=== PATIENT | female | born 1950 | race Caucasian/White ===

== ENCOUNTER → 2017-05-04 | Outpatient (CLI) | payer MEDICARE | END | disposition home or self-care (01) | LOC: CFH 07:58 | PROVIDERS: ATTEND Nurse Practitioner Family | DX: M23.221 Derangement of posterior horn of medial meniscus due to old tear or injury, right knee (principal); M17.11 Unilateral primary osteoarthritis, right knee; M65.9 Synovitis and tenosynovitis, unspecified ==

== ENCOUNTER → 2018-07-02 | Outpatient (CLI) | payer MEDICARE | END | disposition home or self-care (01) | LOC: CFH 09:44 | PROVIDERS: ATTEND Nurse Practitioner Family | DX: Z12.31 Encounter for screening mammogram for malignant neoplasm of breast (principal) | CPT/HCPCS: 77067 ==

== ENCOUNTER 2018-07-13 13:05 | Outpatient (CLI) | payer MEDICARE | END 2018-07-13 23:59 | disposition home or self-care (01) | LOC: CFH 13:05 | PROVIDERS: ATTEND Nurse Practitioner Family | DX: K76.0 Fatty (change of) liver, not elsewhere classified (principal); K80.20 Calculus of gallbladder without cholecystitis without obstruction; N28.1 Cyst of kidney, acquired; N83.201 Unspecified ovarian cyst, right side; N85.8 Other specified noninflammatory disorders of uterus | CPT/HCPCS: 76700; 76856 ==

== ENCOUNTER → 2018-08-08 | Outpatient (CLI) | payer MEDICARE ==
[~2018-08-08] MED LIST: OMNIPAQUE 350 MG/ML, 100ML BOTTLE ONE
== END | disposition home or self-care (01) ==
LOC: CFH 09:56
PROVIDERS: ATTEND Nurse Practitioner Family
DX: N28.1 Cyst of kidney, acquired (principal); K80.20 Calculus of gallbladder without cholecystitis without obstruction; R11.0 Nausea; R11.2 Nausea with vomiting, unspecified
CPT/HCPCS: 74177; Q9967

== ENCOUNTER → 2018-12-11 | Outpatient (CLI) | payer MEDICARE ==
[~2018-12-11] MED LIST changes: -OMNIPAQUE 350 MG/ML, 100ML BOTTLE ONE; +SINCALIDE (KINEVAC) 5 MCG ONE
== END | disposition home or self-care (01) ==
LOC: RAD 09:30
PROVIDERS: ATTEND Nurse Practitioner Family
DX: R11.2 Nausea with vomiting, unspecified (principal); K76.89 Other specified diseases of liver
CPT/HCPCS: 78227; A9537; J2805

== ENCOUNTER 2020-08-21 10:37 | Outpatient (CLI) | payer MEDICARE ==
[2020-08-21] MEDS ORDERED: LISI-167 PO (11:17)
[2020-08-21] MEDS ORDERED: AMLO-150 PO (11:17)
[2020-08-21] MEDS ORDERED: HYDR-3248 PO (11:17)
[2020-08-21] MEDS ORDERED: ALBU90AE INH (11:17)
[2020-08-21] MEDS ORDERED: ATOR20TA37 PO (11:17)
[2020-08-21] MEDS ORDERED: DIPH25CA61 PO (11:40)
[2020-08-21] MEDS ORDERED: ALBU0.63 NEB (11:40)
[2020-08-21 12:00] LABS: BASOPHILS % (AUTO) 1 % (0-1); EOSINOPHILS % (AUTO) 2 % (1-7); LYMPHOCYTES % (AUTO) 18 % (22-44); MEAN CORPUSCULAR HEMOGLOBIN 31.5 pg (27.0-34.8); MEAN CORPUSCULAR HGB CONC 32.2 g/dL (32.4-35.8); MEAN PLATELET VOLUME 8.9 fL (7.4-10.4); MONOCYTES % (AUTO) 6 % (2-9); NEUTROPHILS % (AUTO) 73 % (42-75); PLATELET COUNT 361 x10^3/uL (130-400); RED BLOOD COUNT 4.03 x10^6/uL (3.82-5.3); RED CELL DISTRIBUTION WIDTH 15.5 % (9.6-15.2)
[2020-08-21 12:08] LABS: ALANINE AMINOTRANSFERASE 11 U/L (12-78); ALBUMIN 3.4 g/dL (3.4-5.0); ANION GAP 7 mmol/L (5-15); CHLORIDE 107 mmol/L (98-107); INTERNATIONAL NORMALIZED RATIO 0.93 (0.93-1.1); PROTHROMBIN TIME 9.9 Seconds (9.6-11.5)
[2020-08-21 12:11] LABS: ALKALINE PHOSPHATASE 90 U/L (45-117); BILIRUBIN,TOTAL 0.7 mg/dL (0.2-1.0); CREATININE 0.88 mg/dL (0.55-1.02); TOTAL PROTEIN 7.3 g/dL (6.4-8.2)
== END 2020-08-21 23:59 | disposition home or self-care (01) ==
LOC: STAR 10:37
PROVIDERS: ATTEND Orthopaedic Surgery
DX: Z01.812 Encounter for preprocedural laboratory examination (principal); Z20.822 Contact with and (suspected) exposure to COVID-19; M16.12 Unilateral primary osteoarthritis, left hip; I45.10 Unspecified right bundle-branch block
CPT/HCPCS: 36415; 80053; 83036; 85025; 85610; 85730; 87081; 93005; U0003; U0005

== ENCOUNTER 2020-08-28 05:31 | Day surgery (SDC) | payer MEDICARE ==
[2020-08-27 11:25] LABS: BASOPHILS % (AUTO) 1 % (0-1); EOSINOPHILS % (AUTO) 2 % (1-7); LYMPHOCYTES % (AUTO) 17 % (22-44); MEAN CORPUSCULAR HEMOGLOBIN 31.5 pg (27.0-34.8); MEAN CORPUSCULAR HGB CONC 32.1 g/dL (32.4-35.8); MEAN PLATELET VOLUME 8.4 fL (7.4-10.4); MONOCYTES % (AUTO) 6 % (2-9); NEUTROPHILS % (AUTO) 75 % (42-75); PLATELET COUNT 367 x10^3/uL (130-400); RED CELL DISTRIBUTION WIDTH 15.7 % (9.6-15.2)
[2020-08-27 11:38] LABS: MICROSCOPIC INDICATED
[~2020-08-28] VITALS: Ht 172.7 cm; Wt 85.7 kg
[~2020-08-28 05:31] MED LIST changes: +ALBU0.63 NEB; +ALBU90AE INH; +AMLO-150 PO; +ATOR20TA37 PO; +CEFD300C37 PO; +DIPH25CA61 PO; +HYDR-3248 PO; +LISI-167 PO; -SINCALIDE (KINEVAC) 5 MCG ONE
[2020-08-28] MEDS ORDERED: GABAPENTIN 300 MG CAPSULE PO ONE (06:00)
[2020-08-28] MEDS ORDERED: ACETAMINOPHEN 500 MG TABLET PO ONE (06:00)
[2020-08-28] MEDS ORDERED: CHLORHEXIDINE 15 ML UDC PO ONE (06:00)
[2020-08-28] MEDS ORDERED: TRANEXAMIC ACID 100 MG/ML, 10ML ONE ×2 (06:14)
[2020-08-28] MEDS ORDERED: KETOROLAC 30 MG/1 ML ONE (06:14)
[2020-08-28] MEDS ORDERED: ROPIvacaine/PF 0.5%, 30 ML ONE (06:14)
[2020-08-28] MEDS ORDERED: VANCOMYCIN 1,000 MG ONE (06:15)
[2020-08-28] MEDS ORDERED: EPINEPHRINE 1 MG/ML, 1ML ONE (06:15)
[2020-08-28 06:17] VITALS: BP 152/83
[2020-08-28] MEDS ORDERED: ROCURONIUM 10MG/ML,5ML ONE (06:29)
[2020-08-28] MEDS ORDERED: PROPOFOL 10 MG/ML, 20ML ONE (06:29)
[2020-08-28] MEDS ORDERED: MIDAZOLAM 1 MG/ML, 2ML ONE (06:29)
[2020-08-28] MEDS ORDERED: FENTANYL PF 250 MCG/5ML ONE (06:29)
[2020-08-28] MEDS ORDERED: ONDANSETRON 2MG/ML, 2ML IV PRN (06:30)
[2020-08-28] MEDS ORDERED: HYDROcodone/APAP 5/325 TABLET PO PRN (06:30)
[2020-08-28] MEDS ORDERED: BISACODYL 10 MG SUPP PR PRN (06:30)
[2020-08-28] MEDS ORDERED: CEFAZOLIN PMX 2GM/50ML 50 ML IVPB SCH (06:30)
[2020-08-28] MEDS ORDERED: LACTATED RINGERS 1,000 ML IV SCH (06:30)
[2020-08-28] MEDS ORDERED: NS + 20MEQ KCL 1,000 ML IV SCH (06:30)
[2020-08-28] MEDS ORDERED: SENNA/DOCUSATE TABLET PO PRN (06:30)
[2020-08-28] MEDS ORDERED: OXYcodone IR 5MG TABLET PO PRN (06:30)
[2020-08-28] MEDS ORDERED: DIPHENHYDRAMINE 25 MG CAPSULE PO PRN (06:30)
[2020-08-28] MEDS ORDERED: ZOLPIDEM 5MG TABLET PO PRN (06:30)
[2020-08-28] MEDS ORDERED: ACETAMINOPHEN 650 MG/20.3 ML UDC PO PRN (06:30)
[2020-08-28] MEDS ORDERED: MAGNESIUM HYDROXIDE 8%, 30ML UDC PO PRN (06:30)
[2020-08-28] MEDS ORDERED: ONDANSETRON 4 MG TABLET PO PRN (06:30)
[2020-08-28] MEDS ORDERED: CEFAZOLIN 1,000 MG ONE ×2 (07:01)
[2020-08-28] MEDS ORDERED: LABETALOL 5MG/ML, 20ML IV PRN (07:30)
[2020-08-28] MEDS ORDERED: ACETAMINOPHEN 325 MG TABLET PO PRN (07:30)
[2020-08-28] MEDS ORDERED: ONDANSETRON 2MG/ML, 2ML IVPush PRN (07:30)
[2020-08-28] MEDS ORDERED: GLYCOPYRROLATE 0.2MG/1ML, 5ML ONE (07:30)
[2020-08-28] MEDS ORDERED: OXYcodone 5 MG/5 ML ORAL.SOL UDC PO PRN (07:30)
[2020-08-28] MEDS ORDERED: MEPERIDINE/PF 25MG/0.5ML IVPush PRN (07:30)
[2020-08-28] MEDS ORDERED: hydrALAzine 20 MG/ML, 1ML IV PRN (07:30)
[2020-08-28] MEDS ORDERED: PROMETHAZINE 25 MG/ML, 1ML IVPush PRN (07:30)
[2020-08-28] MEDS ORDERED: NEOSTIGMINE 1 MG/ML, 10ML ONE (07:30)
[2020-08-28] MEDS ORDERED: ONDANSETRON 2MG/ML, 2ML ONE (07:32)
[2020-08-28] MEDS ORDERED: FENTANYL PF 100 MCG/2ML ONE (07:57)
[2020-08-28] MEDS ORDERED: HYDROmorphone 1 MG/ML, 1ML INJ ONE (07:58)
[2020-08-28] MEDS ORDERED: OXYcodone 5 MG/5 ML ORAL.SOL UDC ONE (07:58)
[2020-08-28] MEDS: FENTANYL PF 100 MCG/2ML IV PRN ×2 (07:59→08:05)
[2020-08-28] MEDS: HYDROmorphone 1 MG/ML, 1ML INJ IVPush PRN ×2 (08:10→10:03)
[2020-08-28] MEDS ORDERED: DOCUSATE 100 MG CAPSULE PO SCH (09:00)
[2020-08-28] MEDS ORDERED: LISINOPRIL 10 MG TABLET PO SCH (09:00)
[2020-08-28] MEDS ORDERED: AMLODIPINE 5 MG TABLET PO SCH (09:00)
[2020-08-28] MEDS ORDERED: ASPIRIN 81 MG TABLET EC PO SCH (18:00)
[2020-08-29] MEDS ORDERED: DEXAMETHASONE 4 MG/ML, 1ML IVPush SCH (06:00)
== END 2020-08-28 16:15 | disposition home or self-care (01) ==
LOC: OUT 05:31
PROVIDERS: ATTEND Orthopaedic Surgery
DX: M16.12 Unilateral primary osteoarthritis, left hip (principal); M25.752 Osteophyte, left hip; I10 Essential (primary) hypertension; Z79.899 Other long term (current) drug therapy
CPT/HCPCS: 27130; 36415; 72170; 73501; 81001; 85025; 87086; 97116; 97161; 97166; C1713; C1776; J0171; J0690; J1170; J1885; J2250; J2405; J2704; J2710; J2795; J3010; J3370; J7120; 76000